=== PATIENT | female | born 1940 | race Caucasian/White ===

== ENCOUNTER → 2020-07-31 | Outpatient (CLI) | payer MEDICARE ==
[~2020-07-31] MED LIST: ASPI-650 PO; ATOR20TA37 PO; CHLO50TA PO; CYAN50008 PO; GABA300C PO; LOSA100T14 PO; MAGNESIUM PO; METF500T17 PO; VITAMIN D3 PO
[2020-07-31 13:06] LABS: ALBUMIN 3.9 g/dL (3.4-5.0); ANION GAP 4 mmol/L (5-15); CALCIUM 9.6 mg/dL (8.5-10.1); CHLORIDE 105 mmol/L (98-107)
[2020-07-31 13:10] LABS: ALANINE AMINOTRANSFERASE 19 U/L (12-78); ALKALINE PHOSPHATASE 46 U/L (45-117); BILIRUBIN,TOTAL 0.7 mg/dL (0.2-1.0); CREATININE 1.22 mg/dL (0.55-1.02); TOTAL PROTEIN 7.2 g/dL (6.4-8.2)
== END | disposition home or self-care (01) ==
LOC: STAR 11:07
PROVIDERS: ATTEND Orthopaedic Surgery
DX: Z01.812 Encounter for preprocedural laboratory examination (principal); Z20.828 Contact with and (suspected) exposure to other viral communicable diseases; M65.331 Trigger finger, right middle finger; G56.01 Carpal tunnel syndrome, right upper limb; I45.10 Unspecified right bundle-branch block
CPT/HCPCS: 80053; 87635; 93005

== ENCOUNTER 2020-08-05 11:55 | Day surgery (SDC) | payer MEDICARE ==
[~2020-08-05] VITALS: Ht 162.6 cm; Wt 90.0 kg
[2020-08-05 12:22] VITALS: BP 128/66
[2020-08-05] MEDS ORDERED: CHLORHEXIDINE 15 ML UDC MM ONE (12:30)
[2020-08-05] MEDS ORDERED: LACTATED RINGERS 1,000 ML IV SCH (12:30)
[2020-08-05] MEDS ORDERED: CHLORHEXIDINE 15 ML UDC ONE (12:32)
[2020-08-05] MEDS ORDERED: BUPIVACAINE/PF-EPI 0.5% 1:200K ONE (13:03)
[2020-08-05] MEDS ORDERED: LIDOCAINE/PF 1%, 30ML ONE (13:22)
[2020-08-05] MEDS ORDERED: FENTANYL PF 100 MCG/2ML ONE ×3 (13:46→16:08)
[2020-08-05] MEDS ORDERED: MIDAZOLAM 1 MG/ML, 2ML ONE (13:46)
[2020-08-05] MEDS ORDERED: PROPOFOL 10 MG/ML, 20ML ONE (14:18)
[2020-08-05] MEDS ORDERED: CEFAZOLIN 1,000 MG ONE (14:18)
[2020-08-05] MEDS ORDERED: ONDANSETRON 2MG/ML, 2ML ONE (14:18)
[2020-08-05] MEDS ORDERED: PROMETHAZINE 25 MG/ML, 1ML IVPush PRN (15:00)
[2020-08-05] MEDS ORDERED: ACETAMINOPHEN 325 MG TABLET PO PRN (15:00)
[2020-08-05] MEDS ORDERED: ONDANSETRON 2MG/ML, 2ML IVPush PRN (15:00)
[2020-08-05] MEDS ORDERED: DIAZEPAM 5 MG/ML, 2ML IVPush PRN (15:00)
[2020-08-05] MEDS ORDERED: hydrALAzine 20 MG/ML, 1ML IV PRN (15:00)
[2020-08-05] MEDS ORDERED: HYDROmorphone 1 MG/ML, 1ML INJ IVPush PRN (15:00)
[2020-08-05] MEDS ORDERED: LABETALOL 5MG/ML, 20ML IV PRN (15:00)
[2020-08-05] MEDS ORDERED: MEPERIDINE/PF 25MG/0.5ML IVPush PRN (15:00)
[2020-08-05] MEDS ORDERED: DIPHENHYDRAMINE 50 MG/ML, 1ML IVPush PRN (15:00)
[2020-08-05] MEDS ORDERED: ACETAMINOPHEN 650 MG/20.3 ML UDC ONE (15:30)
[2020-08-05] MEDS ORDERED: OXYcodone 5 MG/5 ML ORAL.SOL UDC ONE ×2 (15:30→15:56)
[2020-08-05] MEDS: FENTANYL PF 100 MCG/2ML IV PRN ×6 (15:36→16:14)
[2020-08-05] MEDS: OXYcodone 5 MG/5 ML ORAL.SOL UDC PO PRN ×2 (15:38→16:01)
[2020-08-05] MEDS ORDERED: DIAZEPAM 5 MG/ML, 2ML ONE (15:53)
== END 2020-08-05 17:50 | disposition home or self-care (01) ==
LOC: OR 11:55 → OUT 17:50
PROVIDERS: ATTEND Orthopaedic Surgery
DX: G56.03 Carpal tunnel syndrome, bilateral upper limbs (principal); M65.331 Trigger finger, right middle finger; M65.342 Trigger finger, left ring finger; M18.0 Bilateral primary osteoarthritis of first carpometacarpal joints; M19.041 Primary osteoarthritis, right hand; E11.9 Type 2 diabetes mellitus without complications; I10 Essential (primary) hypertension; I48.91 Unspecified atrial fibrillation; Z79.899 Other long term (current) drug therapy; Z86.718 Personal history of other venous thrombosis and embolism; Z86.711 Personal history of pulmonary embolism; Z82.3 Family history of stroke; Z82.61 Family history of arthritis
CPT/HCPCS: 26055; 26860; 64721; 73140; 82962; C1713; J0690; J2250; J2405; J2704; J3010; J3360; J7120; 76000

== ENCOUNTER 2021-03-17 05:47 | Day surgery (SDC) | payer MEDICARE ==
[~2021-03-17] VITALS: Ht 163.8 cm; Wt 94.1 kg
[~2021-03-17 05:47] MED LIST changes: +ASPI-1026 PO; -ASPI-650 PO; -CYAN50008 PO; +CYAN50009 PO; +GEMCITABINE HCL 1,000 MG in SODIUM CHLORIDE 0.9% 23.7 ML IS ONE
[2021-03-17] MEDS ORDERED: FENTANYL PF 250 MCG/5ML ONE (06:45)
[2021-03-17 06:47] VITALS: BP 150/76
[2021-03-17] MEDS ORDERED: CHLORHEXIDINE 15 ML UDC PO ONE (07:00)
[2021-03-17] MEDS ORDERED: GEMCITABINE HCL 2,000 MG in SODIUM CHLORIDE 0.9% 80 ML IS ONE (07:00)
[2021-03-17] MEDS ORDERED: LACTATED RINGERS 1,000 ML IV SCH (07:00)
[2021-03-17] MEDS ORDERED: APIX5TAB PO (07:17)
[2021-03-17] MEDS ORDERED: FLEC50TA25 PO (07:17)
[2021-03-17] MEDS ORDERED: METO-264 PO (07:17)
[2021-03-17] MEDS ORDERED: HYDROcodone/APAP 7.5-325MG/15ML UDC PO PRN (07:30)
[2021-03-17] MEDS ORDERED: ACETAMINOPHEN 325 MG TABLET PO PRN (07:30)
[2021-03-17] MEDS ORDERED: PROMETHAZINE 25 MG/ML, 1ML IVPush PRN (07:30)
[2021-03-17] MEDS ORDERED: HALOPERIDOL 5 MG/ML IV PRN (07:30)
[2021-03-17] MEDS ORDERED: OXYcodone 5 MG/5 ML ORAL.SOL UDC PO PRN (07:30)
[2021-03-17] MEDS ORDERED: FENTANYL PF 100 MCG/2ML IV PRN (07:30)
[2021-03-17] MEDS ORDERED: HYDROmorphone 1 MG/ML, 1ML INJ IVPush PRN (07:30)
[2021-03-17] MEDS ORDERED: MEPERIDINE/PF 25MG/0.5ML IVPush PRN (07:30)
[2021-03-17] MEDS ORDERED: morphine SULFATE 10 MG/ML, 1ML IVPush PRN (07:30)
[2021-03-17] MEDS ORDERED: fish oil PO (07:34)
[2021-03-17] MEDS ORDERED: FURO20TA3 PO (07:34)
[2021-03-17] MEDS ORDERED: PROPOFOL 10 MG/ML, 20ML ONE (08:03)
[2021-03-17] MEDS ORDERED: CEFAZOLIN 1,000 MG ONE (08:03)
[2021-03-17] MEDS ORDERED: NEOSTIGMINE 1 MG/ML, 10ML ONE (08:03)
[2021-03-17] MEDS ORDERED: ROCURONIUM 10MG/ML,5ML ONE (08:03)
[2021-03-17] MEDS ORDERED: ONDANSETRON 2MG/ML, 2ML ONE (08:03)
[2021-03-17] MEDS ORDERED: DEXAMETHASONE 4 MG/ML, 1ML ONE (08:03)
[2021-03-17] MEDS ORDERED: GLYCOPYRROLATE 0.2MG/1ML, 5ML ONE (08:03)
[2021-03-17] MEDS ORDERED: SUGAMMADEX 200 MG/2 ML IVPush ONE ×2 (08:04→08:23)
[2021-03-17] MEDS ORDERED: GEMCITABINE HCL BLADIN ONE (08:07)
[2021-03-17] MEDS ORDERED: HYDROcodone/APAP 7.5-325MG/15ML UDC ONE (08:49)
== END 2021-03-17 11:50 | disposition home or self-care (01) ==
LOC: OUT 05:47
PROVIDERS: ATTEND Urology
DX: C67.9 Malignant neoplasm of bladder, unspecified (principal); I10 Essential (primary) hypertension; E78.5 Hyperlipidemia, unspecified; I48.91 Unspecified atrial fibrillation; E11.9 Type 2 diabetes mellitus without complications; Z79.01 Long term (current) use of anticoagulants; Z79.82 Long term (current) use of aspirin; Z79.84 Long term (current) use of oral hypoglycemic drugs; Z79.891 Long term (current) use of opiate analgesic; Z79.899 Other long term (current) drug therapy
CPT/HCPCS: 52235; 82962; 88305; 93005; J0690; J1100; J2405; J2704; J2710; J3010; J7120; J9201